=== PATIENT | male | born 1935 | race Caucasian/White ===

== ENCOUNTER 2024-07-18 20:00 | Inpatient (IN) | payer OTHER ==
[~2024-07-18] VITALS: Ht 177.8 cm; Wt 98.0 kg
[2024-07-18 20:33] VITALS: BP_SYST 130; PULSE 120; RESP 16; TEMP 100.6; O2SAT 97
[2024-07-18 21:47] LABS: BASOPHILS % (AUTO) 0.5 % (0.0-2.0); EOSINOPHILS % (AUTO) 0.1 % (0.0-4.0); HEMATOCRIT 45.9 % (36-54); HEMOGLOBIN 14.9 g/dL (14.0-18.0); LYMPHOCYTES # (AUTO) 0.2 K/uL (1.0-5.5); LYMPHOCYTES % (AUTO) 2.3 % (20.5-51.5); MEAN CORPUSCULAR HEMOGLOBIN 28 pg (27-31); MEAN CORPUSCULAR HGB CONC 33 % (32-36); MEAN CORPUSCULAR VOLUME 86 fL (79.0-98.0); MONOCYTES # (AUTO) 0.2 K/uL (0.0-1.0); MONOCYTES % (AUTO) 1.9 % (1.7-9.3); NEUTROPHILS % (AUTO) 95.2 % (40.0-70.0); PLATELET COUNT (AUTO) 290 K/uL (130-430); RED BLOOD CELL COUNT(AUTO) 5.31 MIL/uL (4.2-6.2); RED CELL DISTRIBUTION WIDTH 16.7 % (9.0-15.0); WHITE BLOOD COUNT (AUTO) 9.4 K/uL (4.8-10.8)
[2024-07-18 21:59] LABS: INR 1.3 (0.80-1.20)
[2024-07-18 22:14] LABS: ALANINE AMINOTRANSFERASE 7 U/L (12-78); ALBUMIN 2.7 g/dL (3.4-4.8); ANION GAP 12 (5-15); ASPARTATE AMINOTRANSFERASE 20 U/L (10-37); BILIRUBIN,DIRECT 0.3 mg/dL (0.0-0.3); CALCIUM 7.9 mg/dL (8.4-11.0); CARBON DIOXIDE 24 mmol/L (23-29); CHLORIDE 103 mmol/L (98-107); CREATININE 1.97 mg/dL (0.55-1.30); GLUCOSE 159 mg/dL (74-106); POTASSIUM 3.3 mmol/L (3.5-5.1); SODIUM SERUM 139 mmol/L (136-145); TOTAL BILIRUBIN 0.8 mg/dL (0.0-1.0); TOTAL PROTEIN, SERUM 6.6 g/dL (6.4-8.3); UREA NITROGEN, BLOOD 23 mg/dL (8-21)
[2024-07-18] MEDS: dilTIAZem HCL IVP 5 MG/ML VIAL IVP ONE (23:17)
[2024-07-18] MEDS: cefTRIAXone 1 GM IVPB PREMIX 50 ML IV ONE (23:57)
[2024-07-19] MEDS ORDERED: ONDANSETRON HCL 4 MG/2 ML VIAL IVP PRN
[2024-07-19] MEDS ORDERED: MORPHINE 2 MG/ML INJ. SYRINGE IVP PRN
[2024-07-19] MEDS ORDERED: APIX2.5T PO (00:31)
[2024-07-19] MEDS ORDERED: FINA-37 PO (00:31)
[2024-07-19] MEDS ORDERED: TAMS-11 PO (00:37)
[2024-07-19] MEDS ORDERED: FURO-149 PO (00:37)
[2024-07-19] MEDS ORDERED: TRIA15CR2 TP (00:37)
[2024-07-19] MEDS: METOPROLOL TARTRATE 25 MG TABLET PO SCH (02:35)
[2024-07-19 06:49] LABS: BASOPHILS % (AUTO) 0.2 % (0.0-2.0); EOSINOPHILS # (AUTO) 0.1 K/uL (0.0-0.4); EOSINOPHILS % (AUTO) 0.7 % (0.0-4.0); HEMATOCRIT 42.9 % (36-54); HEMOGLOBIN 14.2 g/dL (14.0-18.0); LYMPHOCYTES # (AUTO) 0.5 K/uL (1.0-5.5); LYMPHOCYTES % (AUTO) 6.1 % (20.5-51.5); MEAN CORPUSCULAR HEMOGLOBIN 28 pg (27-31); MEAN CORPUSCULAR HGB CONC 33 % (32-36); MEAN CORPUSCULAR VOLUME 86 fL (79.0-98.0); MONOCYTES # (AUTO) 0.5 K/uL (0.0-1.0); MONOCYTES % (AUTO) 6.6 % (1.7-9.3); NEUTROPHILS % (AUTO) 86.4 % (40.0-70.0); PLATELET COUNT (AUTO) 270 K/uL (130-430); RED CELL DISTRIBUTION WIDTH 16.9 % (9.0-15.0); WHITE BLOOD COUNT (AUTO) 8.1 K/uL (4.8-10.8)
[2024-07-19 07:06] LABS: ALANINE AMINOTRANSFERASE 7 U/L (12-78); ALBUMIN 2.6 g/dL (3.4-4.8); ANION GAP 8 (5-15); ASPARTATE AMINOTRANSFERASE 18 U/L (10-37); CARBON DIOXIDE 26 mmol/L (23-29); CHLORIDE 102 mmol/L (98-107); CREATININE 2.33 mg/dL (0.55-1.30); GLUCOSE 143 mg/dL (74-106); PHOSPHORUS 2.8 mg/dL (2.7-4.5); POTASSIUM 3.1 mmol/L (3.5-5.1); SODIUM SERUM 136 mmol/L (136-145); TOTAL BILIRUBIN 0.7 mg/dL (0.0-1.0); TOTAL PROTEIN, SERUM 6.3 g/dL (6.4-8.3); UREA NITROGEN, BLOOD 25 mg/dL (8-21)
[2024-07-19 07:12] LABS: BILIRUBIN,URINE NEGATIVE (NEGATIVE); BLOOD, URINE 3+ (NEGATIVE); CLARITY/URINE CLEAR (CLEAR); COLOR,URINE YELLOW (YELLOW); GLUCOSE,URINE NEGATIVE (NEGATIVE); KETONES,URINE NEGATIVE (NEGATIVE); LEUKOCYTE ESTERASE ,URINE NEGATIVE (NEGATIVE); NITRITE, URINE POSITIVE (NEGATIVE); PROTEIN URINE 2+ (NEGATIVE); UROBILINOGEN,URINE 0.2 (0.2-1.0)
[2024-07-19 07:34] LABS: BACTERIA,URINE MODERATE /HPF (None Seen); MUCUS,URINE 1+ /LPF (None Seen); RBC,URINE 20-50 /HPF (0-3)
[2024-07-19] MEDS ORDERED: ENOXAPARIN SODIUM 40 MG/0.4 ML SYRINGE SUBCUT SCH (09:00)
[2024-07-19] MEDS: NACL 0.9% 500 ML IV ONE (10:42)
[2024-07-19] MEDS: POTASSIUM CHLORIDE 40 MEQ in NS 250 ML IV ONE (10:42)
[2024-07-19] MEDS: ENOXAPARIN SODIUM 30 MG/0.3 ML SYRINGE SUBCUT SCH (10:45)
[2024-07-19] MEDS: *HEPARIN PER PHARMACY XX ONE (11:15)
[2024-07-19] MEDS ORDERED: HEPARIN SODIUM,PORCINE 3000 UNITS/0.6 ML BOLUS IVP PRN (11:30)
[2024-07-19 13:20] VITALS: BP_SYST 85; PULSE 50; RESP 18; TEMP 97.4; O2SAT 99
[2024-07-19] MEDS: HEPARIN 25,000 UNITS in 250 ML PREMIX IV PRN (13:50)
[2024-07-19 14:22] VITALS: BP_SYST 95; PULSE 67; RESP 20; TEMP 97; O2SAT 97
[2024-07-19] MEDS: CARVEDILOL 6.25 MG TABLET (COREG) PO ONE (15:04)
[2024-07-19 16:07] VITALS: BP_SYST 97; PULSE 63; RESP 19; TEMP 97.6; O2SAT 100
[2024-07-19 16:10] VITALS: BP_SYST 97; PULSE 63; RESP 19; TEMP 97.6; O2SAT 100
[2024-07-19 20:00] VITALS: O2SAT 99
[2024-07-19] MEDS: NACL 0.9% 1,000 ML IV SCH (20:40)
[2024-07-19] MEDS: CARVEDILOL 6.25 MG TABLET (COREG) PO SCH (20:41)
[2024-07-20] MEDS: cefTRIAXone 1 GM IVPB PREMIX 50 ML IV ONE (00:50)
[2024-07-20] MEDS: cefTRIAXone 1 GM IVPB PREMIX 50 ML IV SCH (00:50)
[2024-07-20 00:51] VITALS: BP_SYST 96; PULSE 60; RESP 18; TEMP 96.5; O2SAT 100
[2024-07-20 08:00] VITALS: O2SAT 2
[2024-07-20] MEDS ORDERED: TAMSULOSIN HCL 0.4 MG CAP PO SCH (08:00)
[2024-07-20] MEDS ORDERED: TAMSULOSIN HCL 0.4 MG CAP PO ONE (08:15)
[2024-07-20 08:17] VITALS: BP_SYST 95; PULSE 54; RESP 16; TEMP 97; O2SAT 100
[2024-07-20 08:48] LABS: BASOPHILS % (AUTO) 0.2 % (0.0-2.0); EOSINOPHILS % (AUTO) 0.5 % (0.0-4.0); HEMATOCRIT 41.9 % (36-54); HEMOGLOBIN 13.5 g/dL (14.0-18.0); LYMPHOCYTES # (AUTO) 0.9 K/uL (1.0-5.5); LYMPHOCYTES % (AUTO) 14.3 % (20.5-51.5); MEAN CORPUSCULAR HEMOGLOBIN 29 pg (27-31); MEAN CORPUSCULAR HGB CONC 32 % (32-36); MEAN CORPUSCULAR VOLUME 89 fL (79.0-98.0); MONOCYTES # (AUTO) 0.5 K/uL (0.0-1.0); MONOCYTES % (AUTO) 8.5 % (1.7-9.3); NEUTROPHILS # (AUTO) 4.9 K/uL (1.8-7.7); NEUTROPHILS % (AUTO) 76.5 % (40.0-70.0); PLATELET COUNT (AUTO) 196 K/uL (130-430); RED BLOOD CELL COUNT(AUTO) 4.71 MIL/uL (4.2-6.2); RED CELL DISTRIBUTION WIDTH 17.5 % (9.0-15.0); WHITE BLOOD COUNT (AUTO) 6.4 K/uL (4.8-10.8)
[2024-07-20 08:49] LABS: ALANINE AMINOTRANSFERASE 11 U/L (12-78); ALBUMIN 2.2 g/dL (3.4-4.8); ANION GAP 2 (5-15); ASPARTATE AMINOTRANSFERASE 43 U/L (10-37); CALCIUM 8.2 mg/dL (8.4-11.0); CARBON DIOXIDE 29 mmol/L (23-29); CHLORIDE 107 mmol/L (98-107); GLUCOSE 103 mg/dL (74-106); SODIUM SERUM 138 mmol/L (136-145); TOTAL BILIRUBIN 0.5 mg/dL (0.0-1.0); TOTAL PROTEIN, SERUM 5.3 g/dL (6.4-8.3); UREA NITROGEN, BLOOD 28 mg/dL (8-21)
[2024-07-20] MEDS: TAMSULOSIN HCL 0.4 MG CAP PO ONE (09:39)
[2024-07-20 12:00] VITALS: BP_SYST 102; PULSE 58; RESP 17; TEMP 97.3; O2SAT 99
[2024-07-20 15:46] VITALS: BP_SYST 105; PULSE 60; RESP 17; TEMP 97; O2SAT 98
[2024-07-20] MEDS: HEPARIN SODIUM,PORCINE 2000 UNITS/0.4 ML BOLUS IVP PRN (17:57)
[2024-07-20] MEDS: ACETAMINOPHEN 325 MG TABLET PO PRN (17:59)
[2024-07-20 20:25] VITALS: BP_SYST 108; PULSE 60; RESP 18; TEMP 97.5; O2SAT 95
[2024-07-20 20:37] LABS: INFLUENZA TYPE A Negative (NEGATIVE); INFLUENZA TYPE B NEGATIVE (NEGATIVE)
[2024-07-20] MEDS: TAMSULOSIN HCL 0.4 MG CAP PO SCH (20:48)
[2024-07-21 00:50] VITALS: BP_SYST 105; PULSE 52; RESP 18; TEMP 97.2; O2SAT 95
[2024-07-21] MEDS: cefTRIAXone 1 GM IVPB PREMIX 50 ML IV ONE (00:53)
[2024-07-21 04:28] LABS: ALANINE AMINOTRANSFERASE 14 U/L (12-78); ALBUMIN 2.1 g/dL (3.4-4.8); ANION GAP 5 (5-15); ASPARTATE AMINOTRANSFERASE 41 U/L (10-37); CALCIUM 8.1 mg/dL (8.4-11.0); CARBON DIOXIDE 29 mmol/L (23-29); CHLORIDE 105 mmol/L (98-107); CREATININE 1.67 mg/dL (0.55-1.30); GLUCOSE 87 mg/dL (74-106); POTASSIUM 4.1 mmol/L (3.5-5.1); SODIUM SERUM 139 mmol/L (136-145); TOTAL BILIRUBIN 0.5 mg/dL (0.0-1.0); UREA NITROGEN, BLOOD 30 mg/dL (8-21)
[2024-07-21 04:48] LABS: BASOPHILS % (AUTO) 0.4 % (0.0-2.0); EOSINOPHILS % (AUTO) 0.5 % (0.0-4.0); HEMATOCRIT 37.5 % (36-54); HEMOGLOBIN 12.7 g/dL (14.0-18.0); LYMPHOCYTES # (AUTO) 0.8 K/uL (1.0-5.5); LYMPHOCYTES % (AUTO) 14.9 % (20.5-51.5); MEAN CORPUSCULAR HEMOGLOBIN 29 pg (27-31); MEAN CORPUSCULAR HGB CONC 34 % (32-36); MEAN CORPUSCULAR VOLUME 87 fL (79.0-98.0); MONOCYTES # (AUTO) 0.3 K/uL (0.0-1.0); MONOCYTES % (AUTO) 6.2 % (1.7-9.3); PLATELET COUNT (AUTO) 199 K/uL (130-430); RED BLOOD CELL COUNT(AUTO) 4.33 MIL/uL (4.2-6.2); RED CELL DISTRIBUTION WIDTH 17.5 % (9.0-15.0); WHITE BLOOD COUNT (AUTO) 5.2 K/uL (4.8-10.8)
[2024-07-21 08:00] VITALS: BP_SYST 107; PULSE 68; RESP 18; TEMP 97.2; O2SAT 96; O2SAT 97
[2024-07-21] MEDS: HYDROcodone/ACETAMIN 5-325 MG TAB (NORCO/ VICODIN) PO PRN (08:57)
[2024-07-21 11:09] VITALS: BP_SYST 111; PULSE 71; RESP 16; TEMP 97.4; O2SAT 95
[2024-07-21 14:58] VITALS: BP_SYST 100; PULSE 59; RESP 16; TEMP 97.5; O2SAT 99
[2024-07-21 20:00] VITALS: BP_SYST 105; PULSE 60; RESP 18; TEMP 97.6; O2SAT 100; O2SAT 95
[2024-07-21] MEDS: CARVEDILOL 3.125 MG TABLET (COREG) PO SCH (21:00)
[2024-07-21] MEDS: APIXABAN 2.5 MG TABLET PO SCH (21:16)
[2024-07-21] MEDS: CEFTRIAXONE SOD 1 GM/ D5W 50 ML IV SCH (21:17)
[2024-07-22] VITALS: BP_SYST 116; PULSE 58; RESP 18; TEMP 97.5; O2SAT 97
[2024-07-22 07:47] VITALS: BP_SYST 126; PULSE 60; RESP 18; TEMP 99.3; O2SAT 99
[2024-07-22 09:35] VITALS: O2SAT 99
[2024-07-22 10:10] LABS: BASOPHILS % (AUTO) 0.2 % (0.0-2.0); EOSINOPHILS # (AUTO) 0.1 K/uL (0.0-0.4); HEMATOCRIT 40.7 % (36-54); HEMOGLOBIN 13.5 g/dL (14.0-18.0); LYMPHOCYTES # (AUTO) 0.6 K/uL (1.0-5.5); LYMPHOCYTES % (AUTO) 8.8 % (20.5-51.5); MEAN CORPUSCULAR HEMOGLOBIN 29 pg (27-31); MEAN CORPUSCULAR HGB CONC 33 % (32-36); MEAN CORPUSCULAR VOLUME 88 fL (79.0-98.0); MONOCYTES # (AUTO) 0.3 K/uL (0.0-1.0); MONOCYTES % (AUTO) 4.9 % (1.7-9.3); NEUTROPHILS # (AUTO) 5.4 K/uL (1.8-7.7); NEUTROPHILS % (AUTO) 85.1 % (40.0-70.0); PLATELET COUNT (AUTO) 224 K/uL (130-430); RED BLOOD CELL COUNT(AUTO) 4.61 MIL/uL (4.2-6.2); RED CELL DISTRIBUTION WIDTH 17.6 % (9.0-15.0); WHITE BLOOD COUNT (AUTO) 6.4 K/uL (4.8-10.8)
[2024-07-22] MEDS ORDERED: COR3.125 PO (10:46)
[2024-07-22] MEDS ORDERED: CEPH250C PO (10:46)
[2024-07-22 11:02] VITALS: BP_SYST 133; PULSE 77; RESP 16; TEMP 97.3; O2SAT 96
[2024-07-22 13:56] VITALS: BP_SYST 111; PULSE 75; RESP 18; TEMP 97.5; O2SAT 96
[2024-07-22 15:16] VITALS: BP_SYST 135; PULSE 71; RESP 16; TEMP 96.9; O2SAT 94
[2024-07-22] MEDS ORDERED: CARV3.1246 PO (19:58)
== END 2024-07-22 17:22 | disposition home or self-care (01) | DRG 280 ==
LOC: SED 20:00 → STU 23:53 → SMU 07-21 15:55
PROVIDERS: ADMIT Student in an Organized Health Care Education/Training Program; ATTEND Student in an Organized Health Care Education/Training Program
DX: I21.4 Non-ST elevation (NSTEMI) myocardial infarction (principal); G93.41 Metabolic encephalopathy; D68.9 Coagulation defect, unspecified; E44.0 Moderate protein-calorie malnutrition; N17.9 Acute kidney failure, unspecified; N39.0 Urinary tract infection, site not specified; I48.20 Chronic atrial fibrillation, unspecified; I50.42 Chronic combined systolic (congestive) and diastolic (congestive) heart failure; D64.9 Anemia, unspecified; E87.6 Hypokalemia; Z85.46 Personal history of malignant neoplasm of prostate; Z79.899 Other long term (current) drug therapy; Z88.8 Allergy status to other drugs, medicaments and biological substances; N18.30 Chronic kidney disease, stage 3 unspecified; Z68.30 Body mass index [BMI] 30.0-30.9, adult
CPT/HCPCS: 36415; 70450-TC; 71045; 76770; 80048; 80053; 80076; 81000; 81001; 81015; 82140; 83605; 83735; 83880; 84100; 84302; 84443; 84484; 85025; 85610; 85730; 87040; 87086; 93005; 93306; 96365; 97110-GP; 97112-GP; 97116-GP; 97530-GP; 99291; G0378; J0696; J1644; J1650; J3480; J3490; J7030; J7050; J7060